=== PATIENT | female | born 1985 | race Caucasian/White ===

== ENCOUNTER 2020-02-09 17:52 | Emergency (ER) | payer OTHER ==
[~2020-02-09] VITALS: Ht 175.3 cm; Wt 54.9 kg
--- NOTE | 2020-02-09 19:32 | NUR ---
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
[2020-02-09] MEDS ORDERED: KETOROLAC 30 MG/1 ML IVPush ONE (20:30)
[2020-02-09] MEDS ORDERED: DIPHENHYDRAMINE 50 MG/ML, 1ML IVPush ONE (20:30)
[2020-02-09] MEDS ORDERED: SODIUM CHLORIDE FLUSH 10ML SYR IVF ONE (20:30)
[2020-02-09] MEDS ORDERED: SODIUM CHLORIDE 0.9% 1,000ML IVBOLUS ONE (20:30)
[2020-02-09] MEDS ORDERED: PROCHLORPERAZINE 5 MG/ML, 2ML IVPush ONE (20:30)
[2020-02-09] MEDS ORDERED: DIPHENHYDRAMINE 50 MG/ML, 1ML ONE (20:34)
[2020-02-09] MEDS ORDERED: KETOROLAC 30 MG/1 ML ONE (20:34)
[2020-02-09] MEDS ORDERED: PROCHLORPERAZINE 5 MG/ML, 2ML ONE (20:34)
--- NOTE | 2020-02-09 20:45 | NUR ---
PT MEDICATED ORDERED. PT GIVEN WARM BLANKETS.
--- NOTE | 2020-02-09 21:31 | NUR ---
CHART UP FOR MD VALENTIN. PT AWARE.
--- NOTE | 2020-02-09 21:40 | NUR ---
PT REPORTS GARCIA IS "MUCH, MUCH BETTER."
[2020-02-09 21:48] VITALS: BP 122/64
== END 2020-02-09 22:03 | disposition home or self-care (01) ==
LOC: ED 20:30
DX: G43.009 Migraine without aura, not intractable, without status migrainosus (principal); H53.149 Visual discomfort, unspecified
CPT/HCPCS: 96361; 96374; 96375; 99284; J0780; J1200; J1885; J7030

== ENCOUNTER 2020-02-14 14:27 | Emergency (ER) | payer OTHER ==
[~2020-02-14] VITALS: Ht 175.3 cm; Wt 55.2 kg
--- NOTE | 2020-02-14 15:02 | NUR ---
RASH TO NECK/TORSO (SPARING HAND/FEET/MUCOUS MEMBRANES) X 24 HOURS. "I RECENTLY SWITCHED BATH SOAPS AND WE USE DIFFERENT CLEANING CHEMICAL AT WORK." TOOK BENADRYL THIS AM WITH RELIEF BUT RASH RETURNED THIS AFTERNOON
[2020-02-14] MEDS ORDERED: hydrOXyzine 50MG TABLET PO ONE (15:30)
[2020-02-14 15:34] LABS: BASOPHILS # (AUTO) 0.03 x10^3/uL (0-0.1); BASOPHILS % (AUTO) 1 % (0-1); EOSINOPHILS # (AUTO) 0.53 x10^3/uL (0-0.4); EOSINOPHILS % (AUTO) 11 % (1-7); LYMPHOCYTES % (AUTO) 40 % (22-44); MD NO; MEAN CORPUSCULAR HEMOGLOBIN 31.6 pg (27.0-34.8); MEAN CORPUSCULAR HGB CONC 32.7 g/dL (32.4-35.8); MEAN PLATELET VOLUME 8.3 fL (7.4-10.4); MONOCYTES # (AUTO) 0.37 x10^3/uL (0.2-0.8); MONOCYTES % (AUTO) 8 % (2-9); NEUTROPHILS # (AUTO) 1.96 x10^3/uL (1.8-6.8); NEUTROPHILS % (AUTO) 41 % (42-75); PLATELET COUNT 182 x10^3/uL (130-400); RED BLOOD COUNT 4.21 x10^6/uL (3.82-5.3); RED CELL DISTRIBUTION WIDTH 12.3 % (9.6-15.2)
[2020-02-14 15:47] LABS: ALANINE AMINOTRANSFERASE 35 U/L (12-78); ALBUMIN 3.7 g/dL (3.4-5.0); ANION GAP 3 mmol/L (5-15); CALCIUM 8.8 mg/dL (8.5-10.1); CHLORIDE 109 mmol/L (98-107); CREATININE 0.69 mg/dL (0.55-1.02)
[2020-02-14 15:49] LABS: ALKALINE PHOSPHATASE 54 U/L (45-117); BILIRUBIN,TOTAL 0.2 mg/dL (0.2-1.0)
--- NOTE | 2020-02-14 16:08 | NUR ---
with reassesment. Patient reports "i'm way less itchy-thank you."
[2020-02-14 16:17] VITALS: BP 140/72
== END 2020-02-14 16:19 | disposition home or self-care (01) ==
LOC: ED 15:11
DX: L42 Pityriasis rosea (principal); G43.909 Migraine, unspecified, not intractable, without status migrainosus; F17.290 Nicotine dependence, other tobacco product, uncomplicated
CPT/HCPCS: 36415; 80053; 85025; 99283